=== PATIENT | male | born 1995 | race African-American/Black ===

== ENCOUNTER 2020-04-11 15:58 | Emergency (ER) | payer OTHER ==
[~2020-04-11] VITALS: Ht 182.9 cm; Wt 117.9 kg
[2020-04-11 17:49] VITALS: BP 149/73
[2020-04-11] MEDS ORDERED: IBUPROFEN 400400 M2 PO (17:50)
[2020-04-11] MEDS ORDERED: CYCLOBENZAPRINE5 MG PO (17:50)
== END 2020-04-11 18:02 | disposition home or self-care (01) ==
LOC: ER 15:58
DX: S13.4XXA Sprain of ligaments of cervical spine, initial encounter (principal); V49.59XA Passenger injured in collision with other motor vehicles in traffic accident, initial encounter; Y93.89 Activity, other specified; Y92.89 Other specified places as the place of occurrence of the external cause; Y99.8 Other external cause status